=== PATIENT | female | born 1970 | race Hispanic/Latino ===

== ENCOUNTER 2018-02-19 14:25 | Emergency (ER) | payer OTHER, SELFPAY ==
[2018-02-19 14:56] LABS: BASOPHILS % (AUTO) 0.8 % (0.0-5.0); EOSINOPHILS % (AUTO) 2.8 % (0.0-8.0); HEMATOCRIT 43.7 % (36-48); LYMPHOCYTES % (AUTO) 33.2 % (21.0-51.0); MEAN CORPUSCULAR HEMOGLOBIN 32.6 pg (27.0-33.0); MEAN CORPUSCULAR HGB CONC 33.5 g/dL (32.0-36.0); MEAN CORPUSCULAR VOLUME 97.2 fL (79-99); MONOCYTES % (AUTO) 6.6 % (3.0-13.0); NEUTROPHILS % (AUTO) 56.6 % (40.0-77.0); PLATELET COUNT (AUTO) 251 K/uL (130-400); RED CELL DISTRIBUTION WIDTH 13.7 % (11.0-15.5); WHITE BLOOD COUNT (AUTO) 7.2 K/uL (4.8-10.8)
[2018-02-19 14:57] LABS: APPEARANCE,URINE Clear (CLEAR); BILIRUBIN,URINE Negative (NEGATIVE); COLOR,URINE Yellow (YELLOW); GLUCOSE, URINE (UA) Negative (NEGATIVE); KETONES,URINE Negative (NEGATIVE); LEUKOCYTE ESTERASE ,URINE Small (NEGATIVE); NITRATE,URINE Negative (NEGATIVE); OCCULT BLOOD,URINE Moderate (NEGATIVE); PROTEIN,URINE Negative (NEGATIVE); UROBILINOGEN,URINE 0.2 mg/dL (0.2-1.0)
[2018-02-19 14:58] LABS: HCG,QUAL RESULT NEGATIVE (NEGATIVE)
[2018-02-19] MEDS ORDERED: MECLIZINE HCL 25 MG TABLET ONE (15:03)
[2018-02-19 15:11] LABS: BACTERIA,URINE Moderate /HPF (None Seen)
[2018-02-19 15:16] LABS: CREATININE 0.9 mg/dL (0.5-1.5); POTASSIUM 3.5 mmol/L (3.5-5.1)
[2018-02-19 15:21] LABS: BILIRUBIN,TOTAL 0.4 mg/dL (0.2-1.0); TOTAL PROTEIN, SERUM 8.2 g/dL (6.0-8.3)
== END 2018-02-19 16:00 | disposition home or self-care (01) ==
LOC: EDH 14:25
DX: H81.10 Benign paroxysmal vertigo, unspecified ear (principal); R03.0 Elevated blood-pressure reading, without diagnosis of hypertension; Z72.0 Tobacco use
CPT/HCPCS: 36415; 80053; 81001; 81025; 83690; 85025

== ENCOUNTER 2019-07-28 13:52 | Emergency (ER) | payer OTHER, SELFPAY ==
[2019-07-28] MEDS ORDERED: DEXAMETHASONE SOD PHOSPHATE 10MG/ML 1ML VIAL ONE (14:20)
[2019-07-28] MEDS ORDERED: FAMOTIDINE 20MG TAB 20 MG TAB ONE (14:20)
[2019-07-28] MEDS ORDERED: DiphenhydrAMINE HCL 50 MG/ML VIAL ONE (14:20)
== END 2019-07-28 15:43 | disposition home or self-care (01) ==
LOC: EDH 13:52
DX: T78.49XA Other allergy, initial encounter (principal); Z88.0 Allergy status to penicillin; Z72.0 Tobacco use
CPT/HCPCS: 96372 ×2; 99284; J1100; J1200

== ENCOUNTER 2019-09-04 12:29 | Emergency (ER) | payer SELFPAY ==
[2019-09-04 13:39] LABS: APPEARANCE,URINE Clear (CLEAR); BILIRUBIN,URINE Negative (NEGATIVE); COLOR,URINE Yellow (YELLOW); GLUCOSE, URINE (UA) Negative (NEGATIVE); KETONES,URINE Negative (NEGATIVE); LEUKOCYTE ESTERASE ,URINE Small (NEGATIVE); NITRATE,URINE Negative (NEGATIVE); OCCULT BLOOD,URINE Moderate (NEGATIVE); PROTEIN,URINE Negative (NEGATIVE); UROBILINOGEN,URINE 0.2 mg/dL (0.2-1.0)
[2019-09-04 13:50] LABS: BACTERIA,URINE Moderate /HPF (None Seen); RBC,URINE 0-1 /HPF (0-1); SQUAMOUS EPITHELIAL CELL,UR 0-2 /HPF (0-2)
== END 2019-09-04 14:06 | disposition home or self-care (01) ==
LOC: EDH 12:29
DX: N39.0 Urinary tract infection, site not specified (principal); Z88.0 Allergy status to penicillin; Z72.0 Tobacco use
CPT/HCPCS: 81001

== ENCOUNTER 2024-07-13 09:47 | Emergency (ER) | payer BC, SELFPAY ==
[~2024-07-13] VITALS: Ht 154.9 cm; Wt 94.8 kg
[2024-07-13 10:11] LABS: BILIRUBIN,URINE NEGATIVE (NEGATIVE); COLOR,URINE YELLOW (YELLOW); GLUCOSE, URINE (UA) NEGATIVE (NEGATIVE); KETONES,URINE NEGATIVE (NEGATIVE); LEUKOCYTE ESTERASE ,URINE 250 Leu/uL (NEGATIVE); NITRATE,URINE NEGATIVE (NEGATIVE); OCCULT BLOOD,URINE LARGE (NEGATIVE); PH,URINE 5.5 (5.0-8.0); PROTEIN,URINE 20 mg/dL (NEGATIVE); UROBILINOGEN,URINE 0.2 mg/dL (0.2-1.0)
[2024-07-13 10:13] LABS: ADD UA MICROSCOPIC YES; APPEARANCE,URINE HAZY (CLEAR)
[2024-07-13 10:15] LABS: BACTERIA,URINE FEW /HPF (None Seen); MUCUS,URINE RARE LPF (None Seen); RBC,URINE 51-100 /HPF (0-1); SQUAMOUS EPITHELIAL CELL,UR MOD /HPF (0-2); WBC,URINE 26-50 /HPF (0-1)
[2024-07-13 10:20] LABS: SARS-CoV-2, RNA, NAAT NEGATIVE SARS CoV-2 (NEGATIVE)
[2024-07-13 10:36] LABS: INFLUENZA TYPE A Negative For Type A (NEGATIVE); INFLUENZA TYPE B Negative For Type B (NEGATIVE)
[2024-07-13] MEDS: acetaMINOPHEN 500 MG TABLET PO ONE (10:47)
[2024-07-13] MEDS ORDERED: METH4TAB3 PO (11:04)
[2024-07-13] MEDS ORDERED: KETO10TA2 PO (11:04)
[2024-07-13] MEDS ORDERED: MACR100 PO (11:05)
[2024-07-13] MEDS: ketOROlac 30MG VIAL (30MG/ML) IM ONE (11:06)
[2024-07-13] MEDS: dexaMETHasone SOD PHOSPHATE 4 MG/ML 1ML VIAL IM ONE (11:06)
[2024-07-13 11:26] VITALS: TEMP 98.6
[2024-07-13 11:27] VITALS: BP 120/74; PULSE 82; RESP 16; TEMP 98.6; O2SAT 98
== END 2024-07-13 11:30 | disposition home or self-care (01) ==
LOC: EDH 09:47
DX: J06.9 Acute upper respiratory infection, unspecified (principal); B97.89 Other viral agents as the cause of diseases classified elsewhere; G43.909 Migraine, unspecified, not intractable, without status migrainosus; N39.0 Urinary tract infection, site not specified; Z20.822 Contact with and (suspected) exposure to COVID-19; Z88.0 Allergy status to penicillin
CPT/HCPCS: 99284; 87635; 87086 ×2; 87186; 87804 ×2; 81001; 96372 ×2; J1100; J1885

== ENCOUNTER 2025-07-14 18:25 | Emergency (ER) | payer BC ==
[~2025-07-14] VITALS: Ht 154.9 cm; Wt 95.7 kg
[~2025-07-14 18:25] MED LIST: KETO10TA2 PO; MACR100 PO; METH4TAB3 PO
--- NOTE | 2025-07-14 20:00 | ERN ---
General Chief Complaint: Abdominal Pain Stated Complaint: ABDOMINAL PAIN Time Seen by MD: 19:11 Source: patient History of Present Illness Initial Comments Patient is a 55-year-old female coming in complaining of left flank pain. Per patient she has been having left flank pain since last night. No nausea no vomiting or diarrhea. Pain is localized to the left upper abdominal region Allergies: Coded Allergies: Penicillins (Unverified Allergy, Unknown, 07/28/19) Home Meds Active Scripts Nitrofurantoin/Nitrofuran Mac (Macrobid) 100 Mg Cap, 100 MG PO BID for 7 Days, #14 CAP Prov:SLADE BAXTER 07/13/24 Methylprednisolone (Medrol) 4 Mg Tab.ds.pk, 4 MG PO AD, #1 PACK Prov:SLADE BAXTER 07/13/24 Ketorolac Tromethamine (Ketorolac Tromethamine) 10 Mg Tablet, 10 MG PO BID for 5 Days, #10 TAB Prov:SLADE BAXTER 07/13/24 Past Medical History Past Medical History: No Pertinent History Medical History Other: denies pmhx Past Surgical History: None Surgical History Other: DENIES SURGICAL HX ROS Dictation CONSTITUTIONAL: No chills, no fever, no weakness, no diaphoresis, no malaise. HEAD/FACE: No signs of trauma. EENT: No eye pain, no blurred vision, no tearing, no double vision, no ear pain, no ear discharge, no nose pain, no nasal congestion, no throat pain, no throat swelling, no mouth pain. RESPIRATORY: No cough, no orthopnea, no SOB, no stridor, no wheezing. CARDIOVASCULAR: No chest pain, no edema, no palpitations, no syncope. GASTROINTESTINAL/ABDOMINAL: abdominal pain, no constipation, no diarrhea, no nausea, no vomiting. GENITOURINARY: No abnormal discharge, no dysuria, no frequent urination, no hematuria. No complaints of pain in the genitals. MUSCULOSKELETAL: No back pain, no gout, no joint pain, no joint swelling, no muscle pain, no muscle stiffness, no neck pain. INTEGUMENTARY: No change in color, no change in hair/nails, no dryness, no lesion, no lumps, no rash. NEUROLOGICAL/PSYCH: No anxiety, not depressed, no emotional problem, no headache, no numbness, no pre-existing deficit, no history of seizures, no tremors, no weakness. HEMATOLOGIC/LYMPHATIC: Not anemic, no history of blood clots, no apparent bleeding, no bruising, glands not swollen. All Systems Negative, Except as Noted. Physical Exam Physical Exam Dictation VITAL SIGNS: Reviewed. GENERAL APPEARANCE: Alert, oriented x3, no acute distress, obese. HEAD AND FACE: Non-traumatic. EYES: PERRL, pink conjunctivas, eyelid no trauma, anterior chamber clear. EARS: Pinnas intact and no signs of trauma or erythema. Ear canals clear and no discharge. TMs no erythema. NOSE: No discharge, no bleeding. OROPHARYNX: Mouth normal, teeth no caries, tongue pink. Pharynx clear, no erythema. Tonsils no exudates, no abscesses noted. Mucous membrane moist. NECK: Supple, non-tender, no thyromegaly, no masses, no JVD, no bruits. BREAST: Deferred. CHEST: No tenderness, no crepitus, no paradoxical movement, no retractions. LUNGS: Clear, well-ventilated, symmetric, no rales, no wheezing, no rhonchi, no stridor, good breath sounds bilaterally. HEART: Regular rate, regular rhythm, no murmur, no gallops. VASCULAR: No peripheral edema. ABDOMEN: Soft, positive bowel sounds, nondistended, no guarding, left upper quadrant pain on palpation, no rebound, no masses no hepatomegaly, no splenomegaly, no Ramírez's sign, no hernias. RECTAL: Deferred. GENITAL: Deferred. NEUROLOGICAL: Normal speech, gross motor function intact, gross sensory function intact. MUSCULOSKELETAL: Neck nontender, full range of motion, back nontender, full range of motion. EXTREMITIES: Nontender, full range of motion. SKIN: Color pink, dry, no turgor, no rash, no lacerations, no abrasions, no contusions. LYMPHATICS: Deferred. Results Laboratory and Microbiology Lab and Micro Result Laboratory Tests Test 07/14/25 19:30 07/14/25 20:11 Urine Color COLORLESS (YELLOW) Urine Appearance CLEAR (CLEAR) Urine pH 6.0 (5.0-8.0) Urine Specific [place] 1.009 (1.001-1.031) Urine Protein NEGATIVE mg/dL (NEGATIVE) Urine Glucose (UA) NEGATIVE mg/dL (NEGATIVE) Urine Ketones NEGATIVE mg/dL (NEGATIVE) Urine Occult Blood MODERATE (NEGATIVE) H Urine Nitrate NEGATIVE (NEGATIVE) Urine Bilirubin NEGATIVE mg/dL (NEGATIVE) Urine Urobilinogen 0.2 mg/dL (0.2-1.0) Urine Leukocyte Esterase NEGATIVE [place]/uL Urine RBC 11-25 /HPF (0-1) H Urine WBC 2-5 /HPF (0-1) H Urine Squamous Epithelial Cells RARE /HPF (0-2) Urine Bacteria RARE /HPF (None Seen) White Blood Count 9.0 K/uL (4.8-10.8) Red Blood Count 4.09 MIL/uL (4.00-5.50) Hemoglobin 13.6 g/dL (12.0-16.0) Hematocrit 40.8 % (36-48) Mean Corpuscular Volume 99.8 fL (79-99) H Mean Corpuscular Hemoglobin 33.3 pg (27.0-33.0) H Mean Corpuscular Hemoglobin Concent 33.3 g/dL (32.0-36.0) Red Cell Distribution Width 13.5 % (11.0-15.5) Platelet Count 193 K/uL (130-400) Mean Platelet Volume 10.0 fL (7.5-10.5) Immature Granulocyte % (Auto) 0.3 % (0-1) Neutrophils (%) (Auto) 66.2 % (40.0-77.0) Lymphocytes (%) (Auto) 22.7 % (21.0-51.0) Monocytes (%) (Auto) 8.2 % (3.0-13.0) Eosinophils (%) (Auto) 2.2 % (0.0-8.0) Basophils (%) (Auto) 0.4 % (0.0-5.0) Neutrophils # (Auto) 6.0 K/uL (1.8-7.7) Lymphocytes # (Auto) 2.0 K/uL (1.0-4.8) Monocytes # (Auto) 0.7 K/uL (0.1-1.0) Eosinophils # (Auto) 0.20 K/uL (0.00-0.70) Basophils # (Auto) 0.04 K/uL (0.00-0.20) Absolute Immature Granulocyte (auto 0.03 K/uL (0-1) Nucleated Red Blood Cells 0.0 % (0.0-0.19) Sodium Level 141 mmol/L (136-145) Potassium Level 4.4 mmol/L (3.5-5.1) Chloride Level 103 mmol/L (101-111) Carbon Dioxide Level 33 mmol/L (21-32) H Blood Urea Nitrogen 15 mg/dL (7-18) Creatinine 1.0 mg/dL (0.5-1.0) Glomerular Filtration Rate Calc 66 mL/min (>90) Random Glucose 94 mg/dL (70-105) Total Calcium 8.9 mg/dL (8.5-10.1) Labs Reviewed?: Yes EKG/XRAY/US/CT/MRI CT Scan Comment [place] [id number] [place] [id number] IMAGING REPORT Signed PATIENT: SOSA MACIAS MR#: [id number] : 1970 SEX: F AGE: 55 LOCATION: [facility] ORDER 38 STATUS: REG REPORT#: [id number] SERVICE 36 REASON: ABD PAIN ORDERING PHYSICIAN: MILTON TRAORE MD PROCEDURE: ABD PEL WO - CT ABDOMEN/PELVIS W/O CONTRAST EXAM: CT Abdomen and Pelvis without IV contrast CLINICAL HISTORY: Abdominal pain. TECHNIQUE: Thin collimated axial CT images of the abdomen and pelvis were obtained, with sagittal and coronal reformatted images also submitted. A CT scan is done according to ALARA (As Low As Reasonably Achievable). CONTRAST: None COMPARISON: None. FINDINGS: 0.3 cm right lower lobe pulmonary nodule. No focal abnormality within the liver, gallbladder, pancreas, spleen, adrenals, or kidneys. Scattered diverticulosis of the descending and sigmoid colon. Mild diverticular wall thickening in the mid descending colon with adjacent fat stranding consistent with changes of acute diverticulitis. No free intraperitoneal air. There is no obvious bowel wall thickening. Bowel loops are normal in caliber without evidence of obstruction or ileus. Omental fat containing umbilical hernia (2.6 x 1.2 cm). The appendix is normal. There is no abnormality within the urinary bladder. Unremarkable reproductive organs. Abdominal and pelvic vessels were limited in evaluation due to a lack of intravenous contrast. No evidence of aneurysmal dilatation of the abdominal aorta No lymphadenopathy. No free fluid. There is no acute osseous abnormality. Mild degenerative changes in the sacroiliac, superolateral hip joint, and in the lumbar spine at L4-L5 and L5-S1 level. Bilateral pars defect at the L4-L5 level. Grade 1 anterolisthesis of L4 over L5 and severe facet arthropathy. Moderate to severe narrowing of the neural foramina at the L4-L5 level. IMPRESSIONS: Scattered colonic diverticula with acute diverticulitis around the distal descending colon. No perforation or abscess is evident. Small omental fat containing umbilical hernia. /[place] DICTATED BY: RUPERT RODRÍGUEZ Jr., MD DATE: 07/14/252234 ELECTRONICALLY SIGNED BY: RUPERT RODRÍGUEZ Jr., MD DATE: 07/14/252234 MDM MDM: Differential diagnosis: Colitis, constipation, diverticulosis, diverticulitis Rationale: Tests considered and ordered secondary to shared decision making include: Previous outside records reviewed: Old ER visits. Risk of complication and/or morbidity or mortality of patient management: None Medications-Per medication reconciliation Need for hospitalization: Patient does not meet criteria for hospitalization. Need for emergency major/minor surgery: No Patient is a 65-year-old female coming in complaining of left abdominal pain. CT disclose diverticulitis laboratory workup did not disclose acute inflamma tion. Patient received Zosyn we will be discharged with a on antibiotics denies it has been follow up with PCP for long-term management. ED Course Orders Procedure Category Date Status Time Cbc With Differential LAB 07/14/25 Complete 19:37 Urinalysis Profile LAB 07/14/25 Complete 19:37 0.9%Nacl 1000ml (Ns PHA 07/14/25 Complete 1000ml) 20:00 Pantoprazole 40mg Inj PHA 07/14/25 Complete (Protonix 40mg Inj 20:00 Ct Abdomen/Pelvis W/O CT 07/14/25 Resulted Contrast 19:37 Basic Metabolic Panel LAB 07/14/25 Complete 19:37 Levofloxacin 500 PHA 07/14/25 Logged Mg/D5w 100 Ml 22:00 Current Medications Medications (Trade) Dose Ordered Sig/Estiven Route PRN Reason Start Time Stop Time Status Last Admin Dose Admin Levofloxacin/ Dextrose 100 ml @ 100 mls/hr Q24H IV 07/14/25 22:00 07/24/25 21:59 UNV Pantoprazole Sodium (PROTonix 40MG INJ) 40 mg ONCE ONCE IVP 07/14/25 20:00 07/14/25 20:01 DC Sodium Chloride 1,000 ml @ 0 mls/hr ONCE ONCE IV 07/14/25 20:00 07/14/25 20:01 DC Vital Signs Date Time Temp Pulse Resp B/P (MAP) Pulse Ox O2 Delivery O2 Flow Rate FiO2 07/14/25 18:33 99.7 82 16 114/82 98 Room Air* 0 21 07/14/25 18:31 99.7 82 16 114/82 98 Room Air 0 DX & DISP Disposition: Discharge Departure Impression: Primary Impression: Diverticulitis Condition: Stable Scripts Metronidazole (Metronidazole) 500 Mg Tablet 1 TAB PO BID for 7 Days, #14 TAB 0 Refills Prov: MILTON TRAORE MD 07/14/25 Levofloxacin (Levaquin 750Mg Tabs) 750 Mg Tablet 1 TAB PO DAILY for 7 Days, #7 TAB 0 Refills Prov: MILTON TRAORE MD 07/14/25 Additional Instructions: FOLLOW-UP WITH PRIMARY CARE PROVIDER IN 1 TO 2 DAYS. TAKE MEDICATIONS DIRECTED HERE IN THE EMERGENCY ROOM. OKAY TO CONTINUE HOME MEDICATIONS UNLESS OTHERWISE DISCUSSED DURING YOUR VISIT IN THE EMERGENCY ROOM TODAY. RETURN TO YOUR NEAREST EMERGENCY ROOM IF SYMPTOMS WORSEN OR IF THERE IS NO IMPROVEMENT. CALL 911 IF YOU NEED IMMEDIATE ASSISTANCE. TAKE TYLENOL [id number] NEEDED AND IF NO CONTRAINDICATIONS ARE PRESENT. INCREASE ORAL HYDRATION. A WOUND CULTURE OR URINE CULTURE WAS ORDERED HERE IN THE EMERGENCY ROOM DEPARTMENT PLEASE FOLLOW-UP WITH PRIMARY CARE PROVIDER AND ADVISE THEM TO GET REPORTS FROM OUR FACILITY. IF YOU HAD ANY REGINALD WRAP/SPLINTS THAT WERE APPLIED HERE, PLEASE DO NOT REMOVE THEM UNTIL YOU SEE YOUR PRIMARY CARE OR SPECIALTY. Referrals: Referrals: TAVO PRUETT MD (PCP) Time of Disposition: 21:40 MILTON TRAORE MD Jul 14, 2025 19:59
[2025-07-14 20:05] LABS: APPEARANCE,URINE CLEAR (CLEAR); GLUCOSE, URINE (UA) NEGATIVE (NEGATIVE); LEUKOCYTE ESTERASE ,URINE NEGATIVE Leu/uL (NEGATIVE); NITRATE,URINE NEGATIVE (NEGATIVE); OCCULT BLOOD,URINE MODERATE (NEGATIVE)
[2025-07-14 20:07] LABS: ADD UA MICROSCOPIC YES
[2025-07-14 20:10] LABS: SQUAMOUS EPITHELIAL CELL,UR RARE /HPF (0-2)
[2025-07-14 20:33] LABS: IMMATURE GRANULOCYTE ABSOLUTE 0.03 K/uL (0-1); NUCLEATED RED BLOOD CELLS 0.0 % (0.0-0.19); PLATELET COUNT (AUTO) 193 K/uL (130-400); RED BLOOD CELL COUNT(AUTO) 4.09 MIL/uL (4.00-5.50); RED CELL DISTRIBUTION WIDTH 13.5 % (11.0-15.5); WHITE BLOOD COUNT (AUTO) 9.0 K/uL (4.8-10.8)
[2025-07-14 20:44] LABS: CREATININE 1.0 mg/dL (0.5-1.0); GLOMERULAR FILTR. RATE CALC 66.0 mL/min (>90); GLUCOSE,RANDOM 94.0 mg/dL (70-105); SODIUM SERUM 141.0 mmol/L (136-145); UREA NITROGEN, BLOOD 15.0 mg/dL (7-18)
--- NOTE | 2025-07-14 21:35 | HMCIMG ---
EXAM: CT Abdomen and Pelvis without IV contrast CLINICAL HISTORY: Abdominal pain. TECHNIQUE: Thin collimated axial CT images of the abdomen and pelvis were obtained, with sagittal and coronal reformatted images also submitted. A CT scan is done according to ALARA (As Low As Reasonably Achievable). CONTRAST: None COMPARISON: None. FINDINGS: 0.3 cm right lower lobe pulmonary nodule. No focal abnormality within the liver, gallbladder, pancreas, spleen, adrenals, or kidneys. Scattered diverticulosis of the descending and sigmoid colon. Mild diverticular wall thickening in the mid descending colon with adjacent fat stranding consistent with changes of acute diverticulitis. No free intraperitoneal air. There is no obvious bowel wall thickening. Bowel loops are normal in caliber without evidence of obstruction or ileus. Omental fat containing umbilical hernia (2.6 x 1.2 cm). The appendix is normal. There is no abnormality within the urinary bladder. Unremarkable reproductive organs. Abdominal and pelvic vessels were limited in evaluation due to a lack of intravenous contrast. No evidence of aneurysmal dilatation of the abdominal aorta No lymphadenopathy. No free fluid. There is no acute osseous abnormality. Mild degenerative changes in the sacroiliac, superolateral hip joint, and in the lumbar spine at L4-L5 and L5-S1 level. Bilateral pars defect at the L4-L5 level. Grade 1 anterolisthesis of L4 over L5 and severe facet arthropathy. Moderate to severe narrowing of the neural foramina at the L4-L5 level. IMPRESSIONS: Scattered colonic diverticula with acute diverticulitis around the distal descending colon. No perforation or abscess is evident. Small omental fat containing umbilical hernia. /[place]
--- NOTE | 2025-07-14 22:20 | NUR ---
ASSUMED PT CARE
[2025-07-14] MEDS ORDERED: METR-172 PO (22:27)
[2025-07-14] MEDS ORDERED: LEVO750T68 PO (22:27)
[2025-07-14] MEDS: 0.9%NACL 1000ML 1,000 ML IV ONE (22:38)
--- NOTE | 2025-07-14 23:20 | NUR ---
discharge pending iv antibiotics to complete infusion
[2025-07-14 23:38] VITALS: BP 135/66; PULSE 85; RESP 18; TEMP 98.5; O2SAT 99
== END 2025-07-15 00:15 | disposition home or self-care (01) ==
LOC: EDH 18:25
DX: K57.30 Diverticulosis of large intestine without perforation or abscess without bleeding (principal); Z88.0 Allergy status to penicillin; Z79.899 Other long term (current) drug therapy
CPT/HCPCS: 99284; 74176; 96374; 96375; 80048; 85025; 81001; 36415; J1956; J2470